=== PATIENT | male | born 1940 | race Caucasian/White ===

== ENCOUNTER 2018-12-09 09:15 | Outpatient (CLI) | payer MEDICARE, BC ==
--- NOTE | 2018-12-09 10:25 | CT ---
CT HEAD NONCONTRAST: Date: 12/09/18 INDICATION: History of hydrocephalus, dizziness. COMPARISON: 08/27/13. FINDINGS: Interval development of mild prominence of the extra-axial space, slightly increased density relative to CSF, although not demonstrating density of hemorrhage of acuity. Grossly stable size of ventricul ar system with a redemonstrated right parietotemporal approach ventriculostomy with tip overlying the posterior body of the left lateral ventricle. No new midline shift demonstrated. There is mild scatt ered paranasal sinus mucosal thickening. IMPRESSION: 1. Grossly stable, mild prominence of the ventricular system, with right parietotemporal approach ve ntriculostomy again seen. 2. Interval development of mild prominence of extra-axial space notably overlying the anterior to mi d right convexity. This could be on the basis of subdural hygroma or possibly chronic subdural hemato ma. As necessary, follow-up with brain MRI may prove useful. POS: Jluis
== END 2018-12-09 09:16 | disposition home or self-care (01) ==
LOC: TBSIIMAG 09:15
PROVIDERS: ATTEND Neurological Surgery
DX: G91.9 Hydrocephalus, unspecified (principal); Z98.2 Presence of cerebrospinal fluid drainage device
CPT/HCPCS: 70450